=== PATIENT | female | born 1940 | race Caucasian/White ===

== ENCOUNTER 2016-06-21 09:00 | Inpatient (IN) | payer OTHER ==
[~2016-06-21] VITALS: Ht 160 cm; Wt 59.0 kg
--- NOTE | 2016-06-21 10:36 | DIAGNOSTIC IMAGING REPORT ---
PROCEDURE: XR CHEST 1 VIEW INDICATION: FEVER TECHNIQUE: Portable AP view 10:00 a.m. COMPARISON: Chest 01/18/2016 and 08/22/2013 FINDINGS: Lungs are clear. Stable mild left hemidiaphragm elevation. Cardiovascular structures are normal. Bony thorax is unremarkable. No significant interval change. IMPRESSION: 1. Negative chest.
--- NOTE | 2016-06-21 13:10 | ED CLINICAL REPORT ---
Clinical Report - Physicians/Mid Levels [facility] [address] [place] [address] 06/21/2016 9:04 [id number] Time Seen: 09:35 Jun 21 2016. Arrived- By ambulance. Historian- patient and EMS personnel. CPT: ER phys charges level 5 plus (#[id number]). EKG interpretation (#[id number]). HISTORY OF PRESENT ILLNESS Chief Complaint: WEAKNESS. Reported left sided weakness by medics but none apparent on arrival and patient not c/o of this symptoms. Last seen well yesterday at 1500. This started about 2 weeks [employer] and is still present. The patient has had weakness, (Pt indicates that she has been ill for the last 2 weeks. That she's had a cough, no apparent fever sweats or chills, no nausea vomiting diarrhea abdominal pain chest pain. Family states that she is not acting right.). At its maximum deficit described as moderate. When seen in the E.D., deficit described as mild. No dizziness, altered mental status, seizure or blackouts. Usually is alert and oriented X3 and has normal mobility. Similar symptoms previously: None. Recent medical care: The patient was seen recently at another facility in the office. Evaluation/treatment: antibiotic prescribed. Diagnosis: (UTI). REVIEW OF SYSTEMS No fever, headache, head injury, chest pain or difficulty breathing. No sputum production, sore throat or throat, abdominal pain or nausea. No diarrhea, black stools, skin rash, enlarged lymph nodes or joint pain. No vomiting, mouth sores or easy bruising. The patient has had a cough, weakness, and diabetic symptoms. All systems otherwise negative, except as recorded above. PAST HISTORY ( Esophageal Foreign Body. Arrhythmia. Dyspnea. Chest Pain. Depression. Gastroesophageal Reflux. Hyperlipidemia. Immunizations. LNMP - Last Normal Menstrual Period. Arthritis. Paroxysmal Supraventricular Tachycardia. UTI - Urinary Tract Infection. Hypoglycemia. Diabetes Mellitus. Hypertension. Hypercholesterolemia. Breast Cancer right mastectomy: Resolved. Back Surgery. cardiac Ablation for a-fib. Carpal Tunnel Surgery. Right Mastectomy. Tonsillectomy & Adenoidectomy.). Medications: Amitriptyline HCl Oral 100 mg, at bedtime. Aspirin Oral (Tablet 81 mg), at bedtime. Carbidopa-Levodopa Oral 25/100 mg, daily. Cefuroxime Axetil Oral 500 mg, 2x a day, started yesterday for UTI . Hydrocodone-Acetaminophen Oral (Tablet 10-325 mg) 1 tablet, 4x a day. Lisinopril Oral 10 mg, daily. MetFORMIN HCl Oral (Tablet 500 mg) 2 tablets, 2x a day. Omeprazole Oral 20 mg, daily. Oxybutynin Chloride Oral 5 mg, 2x a day. Simvastatin Oral 20 mg, daily. Allergies: Baclofen. SOCIAL HISTORY Former smoker. No alcohol use or drug use. ADDITIONAL NOTES The nursing notes have been reviewed. PHYSICAL EXAM Vital Signs: 06/21/2016 09:12 BP: 139/53. HR: 127. RR: 17. O2 saturation: 95%. Temp: 101.8 F. Pain level now: 0/10. Appearance: Alert. No acute distress. Head: Head atraumatic. Eyes: Pupils equal, round and reactive to light. ENT: Normal ENT inspection. Airway intact. (dry membranes). Neck: Normal inspection. Neck supple. CVS: Tachycardia. Heart sounds normal. Pulses normal. Respiratory: No respiratory distress. Mild bilateral rhonchi present posteriorly. Abdomen: Soft and nontender. Back: Normal inspection. Skin: Skin warm. Normal skin color. No rash. Extremities: Extremities exhibit normal ROM. No calf tenderness. No lower extremity edema. Neuro: Alert. Oriented X 3. Mood/affect normal. Speech normal. Cranial nerves normal (as tested). No cerebellar findings. No motor deficit. NIH Stroke Scale: score 0. Level of Consciousness: alert (0). LOC Questions: both (0). LOC Commands: both (0). Best gaze: normal (0). Visual field loss: none (0). Facial palsy: normal (0). Motor arm: no drift right arm (0) and no drift left arm (0). Motor leg: no drift right leg (0) and no drift left leg (0). Limb ataxia: none (0). Sensory loss: none (0). Aphasia: none (0). Dysarthria: normal (0). Extinction and inattention: none (0). LABS, X-RAYS, AND EKG EKG: Tachycardia. Right and left atrial enlargement. Normal JOVANNY. Normal QRS complex. Normal axis. Normal ST and T waves. Prior EKG unavailable. The study has been interpreted contemporaneously. The study has been independently viewed by me. The EKG appears to be a good tracing. Chest X-ray: Normal Chest X-Ray. Laboratory Tests: UA-Culture if indicated: (GLENNA: 06/21/2016 11:45) ( [facility] [place] 12:19) Final results Test Result Flag Units (Reference) URINE COLOR YELLOW URINE APPEARANCE CLEAR URINE GLUCOSE 3+ (NEGATIVE) URINE BILIRUBIN NEGATIVE (NEGATIVE) URINE KETONE TRACE (NEGATIVE) URINE SPECIFIC GRAVITY 1.010 (1.010-1.030) URINE PH 6.0 (5.0-8.0) URINE PROTEIN NEGATIVE (NEGATIVE) URINE UROBILINOGEN 0.2 EU/dL (0.2-1.0) URINE NITRITE NEGATIVE (NEGATIVE) URINE BLOOD NEGATIVE (NEGATIVE) URINE LEUK ESTERASE NEGATIVE (NEGATIVE) URINE RBC 0-1 rbc/hpf (0-1) URINE WBC 3-5 wbc/hpf (0-1) URINE EPITHELIAL CELLS NONE SEEN EPI/hpf (0-5) URINE BACTERIA NONE SEEN (NONE SEEN) URINE COMMENT CULT NOT INDICATED URINE CULTURES ARE SET-UP BASED ON THE FOLLOWING CRITERIA:POSITIVE NITRITEPOSITIVE LEUKOCYTE ESTERASEGREATER THAN 10 WHITE BLOOD CELLSMODERATE (2+) OR GREATER BACTERIA CBC w Diff: (GLENNA: 06/21/2016 09:55) ( [facility] [place] 10:12) IP Test Result Flag Units (Reference) WHITE BLOOD COUNT 8.4 K/uL (4.5-11.5) RED BLOOD COUNT 3.70 L M/uL (4.00-5.20) HEMOGLOBIN 10.5 L gm/dL (12.0-16.0) HEMATOCRIT 32.5 L % (36.0-46.0) MEAN CELL VOLUME 88 fL (80-100) MEAN CORPUSCULAR HGB 28 pg (26-34) MEAN CORPUSCULAR HGB CONC 32 g/dL (31-37) RED CELL DISTRIBUTION WIDTH 16.5 H % (11.6-14.8) PLATELET COUNT 231 K/uL (150-400) Lactate, Serum: (GLENNA: 06/21/2016 09:55) ( [facility] 06/21/2016 10:36) Final results Test Result Flag Units (Reference) LACTIC ACID 2.8 H mmol/L (0.4-2.0) [id number]: (GLENNA: 06/21/2016 09:55) ( MsgRcvd 06/21/2016 12:24) Final results Test Result Flag Units (Reference) PROCALCITONIN 10.5 H ng/mL (0-0.5) PCT Concentration: Interpretation : Risk/option for action PCT <=0.5 ng/mL : Systemic : Low risk forinfection(sepsis): progression to severeis not likely. : systemic infection.Local bacterial : CAUTION-PCT levelsinfection is : below 0.5 ng/mL do notpossible. : exclude an infection,because localizedinfections (withoutsystemic signs) may beassociated with suchlow levels. If PCT ismeasured very earlyafter a bacterialchallenge (usually <6hours), these valuesmay still be low. Inthis case PCT shouldbe re-assessed 6-24hours later. PCT >0.5 and : Systemic infection: Moderate risk for<= 2 ng/mL : (sepsis) is : progression to severepossible, but : systemic infection.other conditions : The patient should beare known to : closely monitoredelevate PCT. : both clinically andby re-assessing PCTwithin 6-24 hours. PCT > 2 ng/mL : Systemic infection: High risk for(sepsis) is likely: progression to severeunless other : systemic infection.causes are known. : PCT >= 10 ng/mL : Important systemic: High likelihood ofinflammatory : severe sepsis orresponse, almost : septic shock.exclusively due to:severe bacterial :sepsis or septic :shock. : CHEM 13 PANEL: (GLENNA: 06/21/2016 09:55) ( MsgRcvd 06/21/2016 11:14) Final results Test Result Flag Units (Reference) GLUCOSE 411 H mg/dL (70-110) BUN 18 mg/dL (7-18) CREATININE 0.8 mg/dL (0.6-1.3) Estimated GFR >60 mL/min Estimated GFR- >60 mL/min Note: Persistent reduction over 3 months in eGFR<60 mL/min/1.73 m2 defines CKD. Patients with eGFR values>=60 mL/min/1.73 m2 may also have CKD if evidence ofpersistent proteinuria. Additional information may be foundat www.[email or web address].org. SODIUM 139 mmol/L (136-145) POTASSIUM 4.5 mmol/L (3.5-5.1) CHLORIDE 104 mmol/L (98-107) CARBON DIOXIDE 26 mmol/L (21-32) CALCIUM 8.1 L mg/dL (8.5-10.1) TOTAL PROTEIN 5.4 L g/dL (6.4-8.2) ALBUMIN 2.5 L g/dL (3.3-5.0) BILIRUBIN, TOTAL 0.5 mg/dL (0.0-1.0) ALKALINE PHOSPHATASE 101 U/L (46-116) AST (SGOT) 45 H U/L (15-37) ALT (SGPT) 26 U/L (12-78) CPK 272 H U/L (24-260) MAGNESIUM 1.6 L mg/dL (1.8-2.4) CK-MB 6.1 H ng/mL (0.5-3.2) %CKMB 2.2 % (0.0-4.0) TROPONIN I 0.09 ng/mL (0.00-1.5) TROPONIN REFERENCE RANGE:<0.1 NEGATIVE0.1-1.5 INDETERMINANT>1.5 POSITIVE Rapid Influenza Screen: (GLENNA: 06/21/2016 10:50) ( MsgRcvd 06/21/2016 11:18) Final results SPECIMEN DESCRIPTION: SWAB Test Result Flag Units (Reference) RAPID INFLUENZA SCREEN DATE: 06/21/16 INFLUENZA A: NEGATIVE SCREEN FOR INFLUENZA A INFLUENZA B: NEGATIVE SCREEN FOR INFLUENZA B . PROGRESS AND PROCEDURES Course of Care: 09:57 06/21/16. patient has a fever and weakness. There is no evidence of unilateral weakness or CVA at this time. Patient was seen yesterday for UTI and started on Ceftin so early urosepsis or sepsis of some other etiology more likely. Pt has also had a cough and was hypoxic at 89% on RA by medics at the scene today. IV NS Blood cultures 2. Rocephin 2g IV 10:22 06/21/16. blood sugar reported by RN of 438 so 7 units regular insulin given IV. BS improved to 269. Discussed case with on-call health care provider, (Souleymane). Reviewed test results. Agreed upon treatment plan. Health care provider will see patient in hospital. Patient/family counseled. Old medical records ordered. Disposition orders written. Disposition: Admitted to the Critical Care Unit. CLINICAL IMPRESSION Acute upper respiratory infection of unclear etiology Hypoxia due to URI Weakness Fever Uncontrolled diabetes with hyperglycemia Elevated PCT and Lactate. (Electronically signed by Noe Medley MD 06/21/2016 19:01)
--- NOTE | 2016-06-21 13:11 | ED NURSING NOTES ---
Clinical Report - Nurses [facility] [address] [place] [address] 06/21/2016 9:04 [id number] TRI[facility] Triage time 0912 AM. Acuity: LEVEL 3. Chief Complaint: MUSCLE ACHES, ACTING DIFFERENTLY, WEAKNESS and CONFUSION (When called by family, pt did not "seem right"). Alert. No acute distress. MILLA COMA SCORE: Hannibal Coma Scale: 15- eyes open spontaneously (4); best verbal response- oriented x 4 (5); best motor response- obeys commands (6). --09:36 Veda Jackson R.N. 09:12 06/21/16. BP: 139/53. HR: 127. RR: 17 (regular, labored and deep). O2 saturation: 95% on non-rebreather at 15 liters/minute. Temp: 101.8 F (oral). Pain level now: 0/10. --09:36 Veda Jackson R.N. late entry - 09:12 AM. --10:19 Veda Jackson R.N. Weight: 77.5 kg stated. Height/Length: 63 inches Per Patient. BMI: 30.3. --09:22 Veda Jackson R.N. Medications Amitriptyline HCl Oral 100 mg, at bedtime. Aspirin Oral (Tablet 81 mg), at bedtime. Carbidopa-Levodopa Oral 25/100 mg, daily. Cefuroxime Axetil Oral 500 mg, 2x a day, started yesterday for UTI . Hydrocodone-Acetaminophen Oral (Tablet 10-325 mg) 1 tablet, 4x a day. Lisinopril Oral 10 mg, daily. MetFORMIN HCl Oral (Tablet 500 mg) 2 tablets, 2x a day. Omeprazole Oral 20 mg, daily. Oxybutynin Chloride Oral 5 mg, 2x a day. Simvastatin Oral 20 mg, daily. --09:20 Veda Jackson R.N. Lantus Subcutaneous. --17:13 Jackson, Veda, R.N. HumaLOG Subcutaneous. --17:14 Veda Jackson R.N. Medication/allergy information source: EMS and other (Look at last ED Visit). --09:36 Veda Jackson R.N. Allergies Baclofen. --09:20 Veda Jackson R.N. History Arrived by EMS, and unaccompanied. This started today. ( Pt lethargic, unable to get much history from her. Awaiting on family members). She has had weakness and a cough. Treatment RESTORATIVE COORDINATOR: (Cardizem 20mg by EMS). EMS treatment RESTORATIVE COORDINATOR verbally communicated. Oxygen administered by nonrebreather mask. Finger stick glucose performed (381). Pulse oximeter applied (upon arrival to house was at 89% RA). food adviser applied. Pre-hospital 12-lead EKG performed on-scene and interpreted by EMS. Medications given- diazepam (20 mg). IV fluid at keep open. BP: (reg adult cuff). HR: 150 irregular. O2 saturation: 93 % (nonrebreather mask). Upon arrival patient awake and lethargic. Oxygen being administered at 15 liters/min via nonrebreather. IV infusing x1. tugger operator and O2 sat monitor in place. PAST MEDICAL HX: Diabetes mellitus. Immunizations: up-to-date. The patient is post-menopausal. SOCIAL HX: Former smoker. No alcohol use or drug use. No infectious disease exposure. ABUSE ASSESSMENT: No report of abuse. SELF HARM ASSESSMENT: A self harm assessment was performed. The patient answered "no" to the question "Do you have thoughts of harming or killing yourself?" and "Have you recently had thoughts about harming or killing others?". FALL RISK ASSESSMENT: Fall risk assessment completed. Risk factors identified include patient medications and age greater than 65 years. Fall interventions initiated. Patient placed on stretcher. Side rails up x2. Brakes on Bed in low position. Call light in reach. Instructed not to get up without assistance. --09:36 Veda Jackson R.N. ( No Left sided weakness noted upon assessment). --10:19 Veda Jackson R.N. PROBLEMS: Esophageal Foreign Body. Arrhythmia. Dyspnea. Chest Pain. Depression. Gastroesophageal Reflux. Hyperlipidemia. Immunizations. LNMP - Last Normal Menstrual Period. Arthritis. Paroxysmal Supraventricular Tachycardia. UTI - Urinary Tract Infection. Hypoglycemia. Diabetes Mellitus. Hypertension. Hypercholesterolemia. Cancer. --09:20 Veda Jackson R.N. ADDITIONAL SURGERIES: Back Surgery. cardiac Ablation. Carpal Tunnel Surgery. Mastectomy. Tonsillectomy & Adenoidectomy. --09:21 Veda Jackson R.N. Interventions ID band on patient. --09:36 Veda Jackson R.N. 09:00 06/21/2016 Site #1 started via IV in the right forearm with an 20g angiocath; one attempt (bY EMS). --09:24 Veda Jackson R.N. PHYSICAL ASSESSMENT To room via stretcher. GENERAL / NEURO / PSYCH: Oriented X 4. Decreased awareness (opens eyes to voice, drowsy and lethargic). She has had weakness. HEENT: No facial asymmetry noted. RESPIRATORY: Decreased breath sounds in the bases bilaterally. Fine crackles in the right lung base posteriorly; crackles in the left lung base posteriorly. CVS: Cardiac rhythm: sinus tachycardia. Capillary refill less than 2 seconds. Pulses within normal limits. GI / : Abdomen soft and nontender and normal bowel sounds. SKIN: Skin intact. Skin is warm and dry. Normal skin turgor. --09:35 Veda Jackson R.N. NURSING PROGRESS NOTES Cardiac rhythm: sinus tachycardia. The initial plan of care for this patient has been created This plan of care was discussed with the patient. Oxygen administered. Monitoring of patient in place. EKG time: (0933 AM). Finger stick glucose: 433; ordered; performed by tech; result shown to the ED physician. Patient gowned. Patient hygiene performed: received partial bath. Patient is incontinent of urine. Changed patient gown, linens and diaper. Warming measures: blanket applied. Reassurance given and given. Assisted patient (with changing linens, and placed gown). Patient identifiers checked. Call light placed in reach. Side rails up x 2. Brakes of bed on. Brakes of chair on. Patient ready for evaluation- ED physician notified. --09:33 Veda Jackson R.N. 09:30 06/21/16. BP: 112/57 taken on the left arm, via an automated monitor. HR: 126. RR: 17. O2 saturation: 98%. O2 started via non-rebreather. Temp: 101.8 F (oral). Pain level now: 0/10. --09:33 Veda Jackson R.N. 10:06 06/21/2016 Site #2 started via IV in the left hand with an 20g angiocath; one attempt. Blood drawn: rainbow set and cultures x1. Labeled in the presence of the patient and sent to the lab. Saline lock flushed with 10 mL saline. --10:11 Veda Jackson R.N. 10:11 06/21/2016 Started bag #1 1000 mL IV Fluids IV NS (Saline); bolus of 500 mL over 30 minute(s) via site #1 via IV pump. Allergies verified and confirmed 5 rights. IV patency established. IV site checked: no pain, redness, or swelling. IV flushed thoroughly pre- and post-medication administration. --10:11 Veda Jackson R.N. 10:00 06/21/16. BP: 110/53. HR: 123. RR: 17. O2 saturation: 98%. O2 started via non-rebreather at 15 liters/minute. Temp: 101.8 F. Pain level now: 0/10. --10:16 Veda Jackson R.N. Cardiac rhythm: sinus tachycardia. Oxygen administered. Monitoring of patient in place. Patient ID band checked for patient name, birthdate and medical record number: patient confirmed. Blood samples drawn from the right hand with 22g butterfly by nurse per protocol ; labeled in presence of the patient and sent to lab: rainbow set: blood culture (1st set). Portable chest x-ray performed. Reassurance given. The patient is calm and resting quietly. Overall patient status is the same- she states feels the same. ( Md Medley aware of Temp 101.8, cultures sent as ordered). GENERAL / NEURO / PSYCH: Denies headache. RESPIRATORY: Denies difficulty breathing. Respiratory distress present. CVS: Denies chest pain. GI / : Denies nausea. SKIN: Skin is warm. Skin color within normal limits. Two patient identifiers checked. Call light placed in reach. Side rails up x 2. Brakes of bed on. Brakes of chair on. --10:16 Veda Jackson R.N. 10:54 06/21/2016 Insulin REG IVP 7 unit given over 20 second(s) via site #1. Allergies verified and confirmed 5 rights. IV patency established. IV site checked: no pain, redness, or swelling. IV flushed thoroughly pre- and post-medication administration. IVP given by RN. --11:04 Veda Jackson R.N. 11:00 06/21/16. BP: 144/58. HR: 121. RR: 17. O2 saturation: 100%. O2 started via non-rebreather at 15 liters/minute. Pain level now: 0/10. --11:25 Veda Jackson R.N. Cardiac rhythm: sinus tachycardia. Oxygen administered. Monitoring of patient in place. Reassurance given. Reassessment after fluids administered and medication administered. She is calm and has had no adverse reaction. Overall patient status is the same- she states feels the same. Two patient identifiers checked. Call light placed in reach. Side rails up x 2. Brakes of bed on. Brakes of chair on. --11:25 Veda Jackson R.N. Finger stick glucose: 364; performed by tech; result shown to the RN. --11:27 Veda Jackson R.N. 11:33 06/21/2016 IV Fluids IV NS via IV site #1 Rate Changed: bag #1 decreased to 250 mL/hr via IV pump. IV patency established. IV site checked: no pain, redness, or swelling. IV flushed thoroughly. Confirmed 5 Rights. --11:43 Veda Jackson R.N. 11:43 06/21/2016 Insulin REG IVP Response: no adverse reaction ([id number]). --11:43 Veda Jackson R.N. 11:40. Wind Power Project Manager provided (catheterization for urine sample.). --11:47 Candy Ramirez Cardiac rhythm: sinus tachycardia. Reassurance given. Patient ID band checked for patient name and birthdate: patient confirmed. Instructions provided to collect clean catch urine and patient verbalized understanding. Clean catch urine collected with return of yellow-colored clear urine; sample sent to lab for urinalysis. Specimen labeled in the presence of the patient. Reassessment after fluids administered and medication administered (BS repeated at 364). She is calm and resting quietly. Overall patient status is improved- she states feels the same. ( BS repeated at 364 MD aware, Temp down to 100.8, O2 brought down to NC at 3L). GENERAL / NEURO / PSYCH: Denies headache or anxiety. RESPIRATORY: Denies difficulty breathing. Respiratory distress present. CVS: Denies chest pain. GI / : Denies nausea. SKIN: Skin is warm. Skin color within normal limits. Two patient identifiers checked. Call light placed in reach. Side rails up x 2. Brakes of bed on. Brakes of chair on. --11:50 Veda Jackson R.N. 11:48 06/21/16. HR: 122. RR: 16. O2 saturation: 100%. O2 started via nasal cannula at 3 liters/minute. Temp: 100.8 F (oral). Pain level now: 0/10. --11:50 Veda Jackson R.N. 10:54 06/21/2016 Insulin REG IVP Co-signature: dosage and concentration verified. --11:54 Lester Bahena R.N. 12:42 06/21/2016 Started 2 gm of Rocephin (CefTRIAXone Sodium) IVPB in bag #1 50 mL; at 150 mL/hr over 30 minute(s) via site #1 via IV pump. Allergies verified and confirmed 5 rights. IV patency established. IV site checked: no pain, redness, or swelling. IV flushed thoroughly pre- and post-medication administration. --12:42 Veda Jackson R.N. 12:00 06/21/16. BP: 107/45 (regular adult cuff) taken on the right arm, via an automated monitor, while lying. HR: 120. RR: 23. O2 saturation: 100%. O2 started via nasal cannula at 3 liters/minute. Temp: 100.8 F (oral). Pain level now: 0/10. --12:45 Veda Jackson R.N. Cardiac rhythm: sinus tachycardia. Oxygen administered. Monitoring of patient in place. Reassurance given. The patient is calm and resting quietly and has had no adverse reaction. Overall patient status is improved- she states feels the same. Patient identifiers checked. Call light placed in reach. Side rails up x 2. Brakes of bed on. Brakes of chair on. --12:45 Veda Jackson R.N. Finger stick glucose: 269 mg/dL; ordered; performed by tech; result shown to the RN. --12:53 Rebeka Golden 13:21 06/21/16. Cardiac rhythm: sinus tachycardia. --13:21 Lester Bahena R.N. 13:20 06/21/16. BP: 98/46. HR: 114. RR: 18. O2 saturation: 99% on nasal cannula at 3 liters/minute. --13:21 Lester Bahena R.N. 13:41 06/21/2016 Rocephin IVPB Discontinued: bag #1 completed. Total amount infused: 50 mL. IV patency established. IV site checked: no pain, redness, or swelling. IV flushed thoroughly. --13:46 Veda Jackson R.N. 14:09 06/21/16. BP: 107/72 (regular adult cuff) taken on the right arm, via an automated monitor, while lying. HR: 113 (regular and tachycardic). RR: 17. O2 saturation: 100%. Temp: 101.4 F. Pain level now: 0/10. --14:31 Veda Jackson R.N. Cardiac rhythm: sinus tachycardia. Oxygen administered. Monitoring of patient in place. Reassurance given. Reassessment after oxygen administered and medication administered. She is calm and has had no adverse reaction. Overall patient status is improved- she states feels the same. Two patient identifiers checked. Call light placed in reach. Side rails up x 2. Brakes of bed on. Brakes of chair on. --14:31 Veda Jackson R.N. Oxygen administered. food adviser, pulse oximeter and NIBP monitor placed on patient; monitor alarms on. Finger stick glucose: 158; performed by nurse; result shown to the ED physician. Reassurance given. Reassessment after fluids administered. She is calm and has had no adverse reaction. ( Pt complaining of stomach ache, Dr. Medley aware, Tylenol given for temp of 101.4. Fluids infusing, bedpan provided with UO of 150 ml). RESPIRATORY: Denies difficulty breathing. CVS: Denies chest pain. GI / : Denies nausea. SKIN: Skin is warm. Skin color within normal limits. Two patient identifiers checked. Call light placed in reach. Side rails up x 2. Brakes of bed on. Brakes of chair on. Patient waiting for treatment bed / room. --14:58 Veda Jackson R.N. 16:00 06/21/16. BP: 115/50. HR: 122 (regular and tachycardic). RR: 17. O2 saturation: 97%. O2 started via nasal cannula at 3 liters/minute. Temp: 100 F (oral). Pain level now: 0/10. --16:58 Veda Jackson R.N. Oxygen administered. Monitoring of patient in place. Reassurance given. Reassessment after oxygen and fluids administered and medication administered. She has had no adverse reaction. Overall patient status is improved- she states feels better. RESPIRATORY: Denies difficulty breathing. CVS: Denies chest pain. Two patient identifiers checked. Call light placed in reach. Side rails up x 2. Brakes of bed on. Brakes of chair on. --16:58 Veda Jackson R.N. 15:00 06/21/16. BP: 109/50. HR: 112 (regular and tachycardic). RR: 15. O2 saturation: 97%. O2 started via nasal cannula at 3 liters/minute. Temp: 99 F (oral). Pain level now: 0/10. --17:01 Veda Jackson R.N. Cardiac rhythm: sinus tachycardia. Oxygen administered. Monitoring of patient in place. Assisted patient back to bed; tolerated well (to Commode x2 assistance). The patient is calm. Overall patient status is improved- she states feels better. Two patient identifiers checked. Call light placed in reach. Side rails up x 1. Brakes of bed on. Brakes of chair on. --17:01 Veda Jackson R.N. 13:25 06/21/2016 IV Fluids IV NS Discontinued: bag #2 completed upon admission. Total amount infused: 1000 mL. --18:25 Veda Jackson R.N. 14:50 06/21/2016 Tylenol (Acetaminophen) PO Tablets 650 mg given. Allergies verified and confirmed 5 rights. --17:51 Veda Jackson R.N. 15:15 06/21/2016 Tylenol PO Response: no adverse reaction symptoms have improved. --17:51 Veda Jackson R.N. DISPOSITION / DISCHARGE 18:03 06/21/2016 Site #1 reassessed; patent, infusing well and no signs of infection or infiltration. Line flushed with saline. Good blood return present. Converted to saline lock. --18:03 Veda Jackson R.N. 18:03 06/21/2016 Site #2 reassessed; patent, line flushes easily and no signs of infiltration. Line flushed with saline. Good blood return present. Converted to saline lock. Flushed with 10 mL saline. --18:03 Veda Jackson R.N. Departure time: 1806 PM. Condition at departure: improved and stable. Transported via stretcher by nurse with O2. Report was given to a nurse via a phone call. Report included patient's care and treatment. All questions were answered. Report was acknowledged and care was transferred. ( Report given to YUKI Traylor in CCU, transferred safely). FALL RISK ASSESSMENT: Fall risk assessment completed. No fall risk identified. --18:04 Veda Jackson R.N. 18:02 06/21/16. BP: 109/55 (regular adult cuff) taken on the left arm, via an automated monitor, while lying. HR: 110. RR: 18. O2 saturation: 94%. O2 started via nasal cannula at 2 liters/minute. Temp: 98.4 F (oral). Pain level now: 0/10. --18:04 Veda Jackson R.N. Locked/Released at 06/21/2016 18:25 by Veda Jackson R.N.
--- NOTE | 2016-06-21 13:11 | ED ORDER SUMMARY ---
..... Patient: ALMITA SANTANA OrderSheet [facility] VisitID: [id number] [place] [address] 76y, F Registration Date/Time: 06/21/2016 ORDER SHEET Weight: 77.5 kg (stated) Allergies: Baclofen GENERAL ORDERS: EKG - ER Stat (09:51 06/21/2016 Danny R.NMarino per protocol) (Ack 9:52 Matt) (9:52 Matt) Blood Culture (Yes) (cefuroxime) Urgent (09:54 06/21/2016 Mike BOWLES) (Ack 9:56 Matt) (10:02 YOUSIFassan R.N.) Cardiac Panel Stat (09:54 06/21/2016 Mike BOWLES) (Ack 9:56 Matt) (10:02 EHassan R.N.) UA-Culture if indicated Urgent (09:54 06/21/2016 Mike BOWLES) (Ack 9:56 Matt) (11:42 EHassan R.N.) Lactate, Serum Urgent (09:54 06/21/2016 Mike BOWLES) (Ack 9:56 Matt) (10:02 YOUSIFassan R.N.) PCT (Procalcitonin) Urgent (09:54 06/21/2016 Mike BOWLES) (Ack 9:56 Matt) (10:02 EHassan R.N.) Chest 1V Urgent (09:55 06/21/2016 Mike BOWLES) (Ack 9:56 Matt) (10:02 EHassan R.N.) Rapid Influenza Screen (Nasal Pharyngeal) (swab) Urgent (10:42 06/21/2016 Mike BOWLES) (Ack 10:56 Laura) (11:03 EHassan R.N.) Old Records (From clinic yesterday to see if have urine culture. and UA results.) (13:11 06/21/2016 Mike BOWLES) (15:08 Laura) MEDICATION ORDERS: Tylenol PO 650 mg (NOW) (14:43 06/21/2016 EHassan R.N. verbal order read back to Mike BOWLES) (17:51 Alana R.NMarino) IV FLUIDS: IV NS : initial bolus 500 mL (1000 mL/hr), then 250 mL/hr for 2h (NOW); Routine (09:54 06/21/2016 Mike BOWLES) (10:11 Alana R.N.) Insulin Reg IV 7 units (NOW) (10:22 06/21/2016 Mike BOWLES) (11:04 Alana R.N.) Rocephin IV 2 gm/50mL (NOW) (12:32 06/21/2016 Mike BOWLES) (12:42 Alana R.N.) ORDER SHEET NOTES: [Electronically signed by Veda Jackson R.N. (18:25 06/21/2016)] [Electronically signed by Noe Medley MD (19:01 06/21/2016)] [Electronically locked/signed by Veda Jackson R.N. (18:25 06/21/2016)]
--- NOTE | 2016-06-21 13:11 | ED ORDER SUMMARY ---
..... Patient: ALMITA SANTANA OrderSheet [facility] VisitID: [id number] [place] [address] 76y, F Registration Date/Time: 06/21/2016 ORDER SHEET Weight: 77.5 kg (stated) Allergies: Baclofen GENERAL ORDERS: EKG - ER Stat (09:51 06/21/2016 Danny R.NMarino per protocol) (Ack 9:52 Matt) (9:52 Matt) Blood Culture (Yes) (cefuroxime) Urgent (09:54 06/21/2016 Mike BOWLES) (Ack 9:56 Matt) (10:02 YOUSIFassan R.N.) Cardiac Panel Stat (09:54 06/21/2016 Mike BOWLES) (Ack 9:56 Matt) (10:02 EHassan R.N.) UA-Culture if indicated Urgent (09:54 06/21/2016 Mike BOWLES) (Ack 9:56 Matt) (11:42 EHassan R.N.) Lactate, Serum Urgent (09:54 06/21/2016 Mike BOWLES) (Ack 9:56 Matt) (10:02 YOUSIFassan R.N.) PCT (Procalcitonin) Urgent (09:54 06/21/2016 Mike BOWLES) (Ack 9:56 Matt) (10:02 EHassan R.N.) Chest 1V Urgent (09:55 06/21/2016 Mike BOWLES) (Ack 9:56 Matt) (10:02 EHassan R.N.) Rapid Influenza Screen (Nasal Pharyngeal) (swab) Urgent (10:42 06/21/2016 Mike BOWLES) (Ack 10:56 Laura) (11:03 EHassan R.N.) Old Records (From clinic yesterday to see if have urine culture. and UA results.) (13:11 06/21/2016 Mike BOWLES) (15:08 Laura) MEDICATION ORDERS: Tylenol PO 650 mg (NOW) (14:43 06/21/2016 EHassan R.N. verbal order read back to Mike BOWLES) (17:51 Alana R.NMarino) IV FLUIDS: IV NS : initial bolus 500 mL (1000 mL/hr), then 250 mL/hr for 2h (NOW); Routine (09:54 06/21/2016 Mike BOWLES) (10:11 Alana R.N.) Insulin Reg IV 7 units (NOW) (10:22 06/21/2016 Mike BOWLES) (11:04 Alana R.N.) Rocephin IV 2 gm/50mL (NOW) (12:32 06/21/2016 Mike BOWLES) (12:42 Alana R.N.) ORDER SHEET NOTES: [Electronically signed by Veda Jackson R.N. (18:25 06/21/2016)] [Electronically signed by Noe Medley MD (19:01 06/21/2016)] [Electronically locked/signed by Veda Jackson R.N. (18:25 06/21/2016)]
--- NOTE | 2016-06-21 14:12 | Progress Note ---
Subjective General Admission History and Physical Examination Patient Name: Sravani Marroquin Admission Date: June 21, 2016 Primary Care Provider: Natalia Hamilton M.D. Attending Physician: Alejo Comer M.D. Admitting Physician: Alejo Comer M.D. SUBJECTIVE Historian: Patient and family Reliability: Fair Chief Complaint: Weakness History of Present Illness: The patient is a 76-year-old white female with a significant past medical history of hypertension, diabetes mellitus, PSVT, degenerative joint disease, gastroesophageal reflux, hyperlipidemia, depression, who presented to [facility] emergency department on the day of admission secondary to complaints of weakness. [facility] ER evaluation was consistent with possible sepsis/viral syndrome. Secondary to the above, the patient was admitted by Alejo Comer M.D. for further evaluation and treatment. PAST MEDICAL HISTORY Illnesses: 1. Hypercholesterolemia 2. Hypertension 3. Diabetes mellitus 4. PSVT 5. Degenerative joint disease 6. Gastroesophageal reflux 7. Depression 8. Esophageal stricture Allergies: 1. Baclofen Medications: 1. Amitriptyline HCl Oral 100 mg, at bedtime. 2. Aspirin Oral (Tablet 81 mg), at bedtime. 3. Carbidopa-Levodopa Oral 25/100 mg, daily. 4. Cefuroxime Axetil Oral 500 mg, 2x a day, started yesterday for UTI . 5. Hydrocodone-Acetaminophen Oral (Tablet 10-325 mg) 1 tablet, 4x a day. 6. Lisinopril Oral 10 mg, daily. 7. Metformin Oral (Tablet 500 mg) 2 tablets, 2x a day. 8. Omeprazole Oral 20 mg, daily. 9. Oxybutynin Chloride Oral 5 mg, 2x a day. 10. Simvastatin Oral 20 mg, daily. Surgery: 1. Back surgery 2. Carpal tunnel release 3. Mastectomy 4. Tonsillectomy and adenoidectomy 5. Cardiac ablation Injuries: 1. No significant Hospitalizations: 1. For above surgery and medical problems FAMILY HISTORY Parents: 1. Father, Unknown, 2. Mother, Unknown Siblings: 1. The patient has 2 siblings apparently in good health Children: 1. The patient has 6 children with no significant medical problems Other significant family history: None SOCIAL HISTORY 1. Marital Status: 2. Advent: None 3. Education: High school and 2 years college-[employer] degree 4. Employment History: ASSISTANT PRODUCE MANAGER, retired 5. Occupational health exposures: No significant HABITS 1. Tobacco: None 2. Drugs: None 3. Alcohol: None HEALTH SUPERVISION Item/Test 1. Not reviewed IMMUNIZATIONS: 1. Pneumococcal: Unknown 2. Influenza: Unknown 3. Tetanus: Unknown REVIEW OF SYSTEMS Remarkable for those things stated in the history of present illness and past medical history. Seventeen point review of system completed with the following notable findings: Unable to obtain secondary to mental status Physical Exam General Appearance Alert, Cooperative, No acute distress HEENT Atraumatic, PERRLA, EOMI, Moist mucous membranes Lungs Scattered rhonchi, otherwise clear to auscultation Neck Supple, No JVD Cardiovascular Normal S1 and S2, tachycardic, grade 2/6 systolic murmur, no rubs or gallops Abdomen Normal bowel sounds, Soft, No tenderness, No guarding Extremities No cyanosis, No clubbing, No edema Neurological Cranial nerves intact, Strength 5/5 x4 ext's, No lateralizing signs Psych/Mental Status Mental status normal, Mood normal LAB Results Laboratory Tests 06/21 06/21 06/21 06/21 1145 0955 0955 0955 Chemistry Plasma Sodium (136 - 145 mmol/L) 139 Plasma Potassium (3.5 - 5.1 mmol/L) 4.5 Plasma Chloride (98 - 107 mmol/L) 104 CO2 (Enzymatic) (21 - 32 mmol/L) 26 BUN (7 - 18 mg/dL) 18 Creatinine (0.6 - 1.3 mg/dL) 0.8 Est GFR ( Amer) (mL/min) >60 Est GFR (Non-Af Amer) (mL/min) >60 Glucose (70 - 110 mg/dL) 411 Lactic Acid (0.4 - 2.0 mmol/L) 2.8 Plasma Calcium (8.5 - 10.1 mg/dL) 8.1 Plasma Magnesium (1.8 - 2.4 mg/dL) 1.6 Total Bilirubin (0.0 - 1.0 mg/dL) 0.5 AST (15 - 37 U/L) 45 ALT (12 - 78 U/L) 26 Alkaline Phosphatase (46 - 116 U/L) 101 Creatine Kinase (24 - 260 U/L) 272 CK-MB (CK-2) (0.5 - 3.2 ng/mL) 6.1 CK/CKMB % Calc (0.0 - 4.0 %) 2.2 Troponin (0.00 - 1.5 ng/mL) 0.09 Total Protein (6.4 - 8.2 g/dL) 5.4 Albumin (3.3 - 5.0 g/dL) 2.5 Procalcitonin (0 - 0.5 ng/mL) 10.5 Hematology WBC (4.5 - 11.5 K/uL) 8.4 RBC (4.00 - 5.20 M/uL) 3.70 Hgb (12.0 - 16.0 gm/dL) 10.5 Hct (36.0 - 46.0 %) 32.5 MCV (80 - 100 fL) 88 MCH (26 - 34 pg) 28 RDW (11.6 - 14.8 %) 16.5 Neut % (Auto) (50 - 75 %) Pending Lymph % (Auto) (25 - 40 %) Pending [place] % (Auto) (3 - 14 %) Pending Band Neutrophils % (0 - 8 %) Pending Plt Count, EDTA (150 - 400 K/uL) 231 PUBS MCHC (31 - 37 g/dL) 32 Urines Urine Color YELLOW Urine Appearance CLEAR Urine pH (5.0 - 8.0) 6.0 Ur Specific [place] (1.010 - 1.030) 1.010 Urine Protein (NEGATIVE) NEGATIVE Urine Ketones (NEGATIVE) TRACE Urine Blood (NEGATIVE) NEGATIVE Urine Nitrite (NEGATIVE) NEGATIVE Urine Bilirubin (NEGATIVE) NEGATIVE Urine Urobilinogen (0.2 - 1.0 EU/dL) 0.2 Ur Leukocyte Esterase (NEGATIVE) NEGATIVE Urine RBC (0 - 1 rbc/hpf) 0-1 Urine WBC (0 - 1 wbc/hpf) 3-5 Ur Epithelial Cells (0 - 5 EPI/hpf) NONE SEEN Urine Bacteria (NONE SEEN) NONE SEEN Urine Glucose (NEGATIVE) 3+ Urine Comment CULT NOT INDICATED Microbiology Date/Time Procedure - Status Source Growth 06/21 1050 Influenza Screen - COMP NASALPHAR 06/21 1020 Blood Culture - RECD BLOOD 06/21 0955 Blood Culture - RECD BLOOD Imaging Chest x-ray IMPRESSION: 1. Negative chest. Dictated by: KALYN MARTIN MD D: GILDA;06/21/16 1036 Assessment and Plan Problem List 1. Upper respiratory infection Plan -Patient's family gives history recent cough-mild -Temperature elevation -No infiltrates on chest x-ray -Empiric treatment with Rocephin in the emergency room -Blood cultures obtained -Elevated Procalcitonin, normal WBC with left shift -Monitor 2. Weakness Plan -Patient presents with diffuse weakness -No focal deficits -Febrile illness noted source probable upper respiratory -Monitor -IV fluid therapy 3. Rhabdomyolysis Status Acute Onset Date Unknown Plan -Patient shows mild rhabdomyolysis -IV fluid therapy -Monitor CPK -Monitor renal function 4. Hypomagnesemia Status Acute Onset Date Unknown Plan -Patient with mild hypomagnesemia -Magnesium 2 g IV now -Slow-Mag one by mouth 3 times a day -Monitor 5. Uncontrolled diabetes mellitus Plan -Patient with uncontrolled diabetes mellitus -Insulin sliding scale -Monitor -Check hemoglobin A1c in a.m. Current status: Fair, unstable Anticipated discharge date: Anticipated discharge in 2-3 days Anticipated discharge placement: Home Patient care time: Time spent in chart review, patient interview, physical exam, CPOE, and care documentation: 70 minutes Visit to patient today: 2 Complexity of care: High E&M Codes Rounding: Inpt-High/[id number]
[2016-06-21 18:15] VITALS: BP 114/53
--- NOTE | 2016-06-21 19:01 | ED MED RECONCILIATION SUMMARY ---
Patient: ALMITA SANTANA Medication Reconciliation Report [facility] VisitID: [id number] [address] [place] [address] 76y, F Registration Date/Time: 06/21/2016 Weight: 77.5 kg Height/Length: 63 in. BMI: 30.3 ALLERGIES: Baclofen The patient's Home Medications are listed below: THE FOLLOWING MEDICATIONS NEED TO BE RECONCILED: Amitriptyline HCl Oral 100 mg, at bedtime Aspirin Oral (81 mg), at bedtime Carbidopa-Levodopa Oral 25/100 mg, daily Cefuroxime Axetil Oral 500 mg, 2x a day HumaLOG Subcutaneous Hydrocodone-Acetaminophen Oral (10-325 mg) 1 tablet, 4x a day Lantus Subcutaneous Lisinopril Oral 10 mg, daily MetFORMIN HCl Oral (500 mg) 2 tablets, 2x a day Omeprazole Oral 20 mg, daily Oxybutynin Chloride Oral 5 mg, 2x a day Simvastatin Oral 20 mg, daily The source(s) of the original Home Medication information: EMS other Look at last ED Visit The following Medications were given to the patient in the Emergency Department: IV NS IV Fluids bolus 500 mL over 30 minute(s), administered: 06/21/2016 10:11:00 AM Insulin REG [IVP] IVP 7 unit, administered: 06/21/2016 10:54:00 AM Rocephin [IVPB] IVPB bolus 0, then 2 gm 150 mL/hr, administered: 06/21/2016 12:42:00 PM Tylenol [PO] PO 650 mg, administered: 06/21/2016 2:50:00 PM The following Medications were prescribed to the patient: None.
--- NOTE | 2016-06-21 19:01 | ED DISCHARGE INSTRUCTIONS ---
Patient: ALMITA SANTANA General Instructions [facility] VisitID: [id number] [address] [place] [address] 76y, F Registration Date/Time: 06/21/2016 Acute upper respiratory infection of unclear etiology Hypoxia due to URI Weakness Fever Uncontrolled diabetes with hyperglycemia Elevated PCT and Lactate. (Electronically signed by Noe Medley MD 06/21/2016 19:01)
--- NOTE | 2016-06-21 19:01 | ED MAR SUMMARY ---
..... Medication Administration Record [facility] [address] [place] [address] Patient: ALMITA SANTANA Visit ID: [id number] 76y, F Weight: 77.5 kg Height/Length: 63 in BMI: 30.3 ALLERGIES: Baclofen Start 10:11 06/21/2016 Veda Jackson R.N., Stop 13:25 06/21/2016 Veda Jackson R.N. Medication Administered: IV NS (SALINE), Dose: IV Fluids, Bolus: 500 mL over 30 minute(s), Dispensed: 1000 mL bag, Site: #1 right forearm. Medication Ordered: IV NS : initial bolus 500 mL (1000 mL/hr), then 250 mL/hr for 2h (NOW); Routine. Given 10:54 06/21/2016 Veda Jackson R.N. Medication Administered: INSULIN REG [IVP], Dose: 7 unit IVP over 20 second(s), Site: #1 right forearm. Medication Ordered: Insulin Reg IV 7 units (NOW). Start 12:42 06/21/2016 Veda Jackson R.N., Stop 13:41 06/21/2016 Veda Jackson R.N. Medication Administered: ROCEPHIN [IVPB] (CEFTRIAXONE SODIUM), Dose: 2 gm IVPB over 30 minute(s), Rate: 150 mL/hr, Dispensed: 50 mL bag, Site: #1 right forearm. Medication Ordered: Rocephin IV 2 gm/50mL (NOW). Given 14:50 06/21/2016 Veda Jackson R.N. Medication Administered: TYLENOL [PO] (ACETAMINOPHEN), Dose: 650 mg Tablets PO. Medication Ordered: Tylenol PO 650 mg (NOW).
--- NOTE | 2016-06-21 19:01 | ED MAR SUMMARY ---
..... Medication Administration Record [facility] [address] [place] [address] Patient: ALMITA SANTANA Visit ID: [id number] 76y, F Weight: 77.5 kg Height/Length: 63 in BMI: 30.3 ALLERGIES: Baclofen Start 10:11 06/21/2016 Veda Jackson R.N., Stop 13:25 06/21/2016 Veda Jackson R.N. Medication Administered: IV NS (SALINE), Dose: IV Fluids, Bolus: 500 mL over 30 minute(s), Dispensed: 1000 mL bag, Site: #1 right forearm. Medication Ordered: IV NS : initial bolus 500 mL (1000 mL/hr), then 250 mL/hr for 2h (NOW); Routine. Given 10:54 06/21/2016 Veda Jackson R.N. Medication Administered: INSULIN REG [IVP], Dose: 7 unit IVP over 20 second(s), Site: #1 right forearm. Medication Ordered: Insulin Reg IV 7 units (NOW). Start 12:42 06/21/2016 Veda Jackson R.N., Stop 13:41 06/21/2016 Veda Jackson R.N. Medication Administered: ROCEPHIN [IVPB] (CEFTRIAXONE SODIUM), Dose: 2 gm IVPB over 30 minute(s), Rate: 150 mL/hr, Dispensed: 50 mL bag, Site: #1 right forearm. Medication Ordered: Rocephin IV 2 gm/50mL (NOW). Given 14:50 06/21/2016 Veda Jackson R.N. Medication Administered: TYLENOL [PO] (ACETAMINOPHEN), Dose: 650 mg Tablets PO. Medication Ordered: Tylenol PO 650 mg (NOW).
--- NOTE | 2016-06-21 19:01 | ED MED RECONCILIATION SUMMARY ---
Patient: ALMITA SANTANA Medication Reconciliation Report [facility] VisitID: [id number] [address] [place] [address] 76y, F Registration Date/Time: 06/21/2016 Weight: 77.5 kg Height/Length: 63 in. BMI: 30.3 ALLERGIES: Baclofen The patient's Home Medications are listed below: THE FOLLOWING MEDICATIONS NEED TO BE RECONCILED: Amitriptyline HCl Oral 100 mg, at bedtime Aspirin Oral (81 mg), at bedtime Carbidopa-Levodopa Oral 25/100 mg, daily Cefuroxime Axetil Oral 500 mg, 2x a day HumaLOG Subcutaneous Hydrocodone-Acetaminophen Oral (10-325 mg) 1 tablet, 4x a day Lantus Subcutaneous Lisinopril Oral 10 mg, daily MetFORMIN HCl Oral (500 mg) 2 tablets, 2x a day Omeprazole Oral 20 mg, daily Oxybutynin Chloride Oral 5 mg, 2x a day Simvastatin Oral 20 mg, daily The source(s) of the original Home Medication information: EMS other Look at last ED Visit The following Medications were given to the patient in the Emergency Department: IV NS IV Fluids bolus 500 mL over 30 minute(s), administered: 06/21/2016 10:11:00 AM Insulin REG [IVP] IVP 7 unit, administered: 06/21/2016 10:54:00 AM Rocephin [IVPB] IVPB bolus 0, then 2 gm 150 mL/hr, administered: 06/21/2016 12:42:00 PM Tylenol [PO] PO 650 mg, administered: 06/21/2016 2:50:00 PM The following Medications were prescribed to the patient: None.
--- NOTE | 2016-06-21 19:01 | ED DISCHARGE INSTRUCTIONS ---
Patient: ALMITA SANTANA General Instructions [facility] VisitID: [id number] [address] [place] [address] 76y, F Registration Date/Time: 06/21/2016 Acute upper respiratory infection of unclear etiology Hypoxia due to URI Weakness Fever Uncontrolled diabetes with hyperglycemia Elevated PCT and Lactate. (Electronically signed by Noe Medley MD 06/21/2016 19:01)
[2016-06-21 19:15] VITALS: BP 109/48
[2016-06-21 20:13] VITALS: BP 117/55
[2016-06-21] MEDS ORDERED: CYCLOBENZAPRINE10 MG PO (21:07)
[2016-06-21] MEDS ORDERED: NORCO1 TAB PO (21:08)
[2016-06-21 21:10] VITALS: BP 101/75
[2016-06-21] MEDS ORDERED: AMITRIPTYLINE H25 MG PO (21:10)
[2016-06-21] MEDS ORDERED: METFORMIN HCL500 MG PO (21:10)
[2016-06-21] MEDS ORDERED: LANTUS SOL100 UNITS/ SC ×2 (21:12)
[2016-06-21] MEDS ORDERED: DITROPAN EQUIVAL5 MG PO (21:13)
[2016-06-21] MEDS ORDERED: SINEMET1 TA2 PO (21:13)
[2016-06-21] MEDS ORDERED: HUMALOG100 MG/ML SC (21:14)
[2016-06-21] MEDS ORDERED: LISINOPRIL10 MG PO (21:15)
[2016-06-21] MEDS ORDERED: GABAPENTIN300 MG PO (21:15)
[2016-06-21] MEDS ORDERED: SIMVASTATIN10 MG PO (21:16)
[2016-06-21] MEDS ORDERED: MECLIZINE HCL25 M1 PO (21:16)
[2016-06-21] MEDS ORDERED: VITAMIN E200 UNIT PO (21:17)
[2016-06-21] MEDS ORDERED: CALCIUM500 M2 PO (21:17)
[2016-06-21] MEDS ORDERED: MULTIPLE VITAMIN PO (21:18)
[2016-06-21] MEDS ORDERED: VITAMIN D-11000 UNIT (21:18)
[2016-06-21 22:01] VITALS: BP 122/58
[2016-06-21 23:00] VITALS: BP 135/61
[2016-06-22] VITALS (13 sets, daily range): BP systolic 127–148; BP diastolic 57–95
--- NOTE | 2016-06-22 07:56 | Progress Note ---
Subjective General Note Date: June 22, 2016 Admission Date: June 21, 2016 Hospital Day: 2 PCP: Natalia Hamilton M.D. Status: Inpatient Advanced Directive: FULL CODE Room: 305 Brief History: The patient is a 76-year-old white female with a significant past medical history of hypertension, diabetes mellitus, PSVT, degenerative joint disease, gastroesophageal reflux, hyperlipidemia, depression, who presented to [facility] emergency department on the day of admission secondary to complaints of weakness. [facility] ER evaluation was consistent with possible sepsis/viral syndrome. Secondary to the above, the patient was admitted by Alejo Comer M.D. for further evaluation and treatment. For other history present illness, past medical history, family history, social history, review of systems, and admission physical examination please see the patient's history and physical examination and ER visit note in the patient's medical record. Subjective: The patient states she is doing well today. No specific complaints. Feels fatigued but otherwise without symptoms. Denies chills, fever, GI or GI complaints. No respiratory complaints other than shortness of breath. Patient requests: No specific Medications and Allergies Medications Current Medications Sig/Renay Start time Last Medication Dose Route Stop Time Status Admin Pantoprazole Sodium 40 MG DAILY@0600 06/22 0600 AC 06/22 IV 0604 Heparin Sodium 5,000 UNITS Q8HR 06/21 (Porcine) SC 0604 Magnesium Chloride 535 MG TID 06/21 PO 0604 Acetaminophen/ See Dose Q4H PRN 06/21 2115 AC 06/22 Hydrocodone Bitart Insts (1) PO 0604 Insulin Human Lispro See Dose ACHS 06/21 2100 AC 06/22 Insts (2) SC 0742 Acetaminophen 650 MG Q4H PRN 06/21 183 AC PO Al Hydrox/Mg Hydrox/ 15 ML Q1H PRN 06/21 183 AC Simethicone PO Albuterol Sulfate 2.5 MG Q3H PRN 06/21 183 AC IN Atropine Sulfate 0.5 MG Q3MIN PRN 06/21 183 AC IV Lidocaine HCl See Dose ONCE PRN 06/21 183 AC Insts (3) IV Magnesium Hydroxide 10 ML DAILY PRN 06/21 183 AC PO Morphine Sulfate 2 MG Q3M PRN 06/21 183 AC IV Nitroglycerin 0.4 MG Q5M PRN 06/21 1829 AC SL Ondansetron HCl 4 MG Q6H PRN 06/21 1829 AC IV Sodium Chloride 1,000 ML ASDIRECTED 06/21 1829 AC 06/22 IV 0611 Dose Instructions: (1)Acetaminophen/Hydrocodone Bitart: 1 - 2 TABLETS (2)Insulin Human Lispro: MEDIUM DOSE SLIDING SCALE (3)Lidocaine HCl: 1.5 MG/KG Allergies Coded Allergies: Meperidine and Related (10/09/97) Physical Exam Vital Signs / I&Os Vital Signs Date Time Temp Pulse Resp B/P Pulse O2 O2 Flow FiO2 Ox Delivery Rate 06/22 07 98.2 103 19 138/64 95 Nasal 3.0 Cannula 06/22 0600 104 18 135/95 96 Nasal 3.0 Cannula 06/22 0519 104 18 137/60 97 06/22 0400 107 20 138/59 95 06/22 0311 109 16 140/66 98 06/22 0208 98.2 113 22 148/67 97 Nasal 3.0 Cannula 06/22 0112 111 17 128/58 97 06/22 0000 108 15 137/60 96 06/21 2342 98.4 06/21 2300 109 14 135/61 97 Nasal 3.0 Cannula 06/21 2201 111 20 122/58 99 Nasal 3.0 Cannula 06/218 3.0 06/210 113 19 101/75 100 Nasal 3.0 Cannula 06/21 2012 111 24 117/55 100 Nasal 3.0 Cannula 06/21 2011 3.0 06/21 1915 106 16 109/48 100 Nasal 3.0 Cannula 06/21 181 99.1 111 17 114/53 97 Nasal 3.0 Cannula I&O 06/22 0000 06/21 1600 06/21 0800 Intake Total 750 Output Total 900 Balance -150 General Appearance Alert, Oriented X3, Cooperative, No acute distress Lungs minimal basilar crackles otherwise clear to auscultation Cardiovascular Regular rate and rhythm, Normal S1 and S2, grade 2/6 systolic murmur unchanged, mild tachycardia Abdomen Normal bowel sounds, Soft, No tenderness, No guarding Extremities No cyanosis, No clubbing, No edema Neurological Cranial nerves intact, No lateralizing signs Psych/Mental Status Mental status normal, Mood normal, family states middle status at baseline LAB Results Laboratory Tests 01/24 01/24 0106/21 Chemistry Plasma Sodium (136 - 145 mmol/L) 139 Plasma Potassium (3.5 - 5.1 mmol/L) 4.4 Plasma Chloride (98 - 107 mmol/L) 106 CO2 (Enzymatic) (21 - 32 mmol/L) 25 BUN (7 - 18 mg/dL) 15 Creatinine (0.6 - 1.3 mg/dL) 0.7 Est GFR ( Amer) (mL/min) >60 Est GFR (Non-Af Amer) (mL/min) >60 Glucose (70 - 110 mg/dL) 275 Hemoglobin A1c % (4.5 - 6.2 %) 8.6 Plasma Calcium (8.5 - 10.1 mg/dL) 7.7 Plasma Magnesium (1.8 - 2.4 mg/dL) 2.1 Total Bilirubin (0.0 - 1.0 mg/dL) 0.4 AST (15 - 37 U/L) 29 ALT (12 - 78 U/L) 30 Alkaline Phosphatase (46 - 116 U/L) 86 Creatine Kinase (24 - 260 U/L) 240 Troponin (0.00 - 1.5 ng/mL) 0.10 Total Protein (6.4 - 8.2 g/dL) 5.0 Albumin (3.3 - 5.0 g/dL) 2.1 Procalcitonin (0 - 0.5 ng/mL) 64.9 Hematology WBC (4.5 - 11.5 K/uL) 15.7 RBC (4.00 - 5.20 M/uL) 3.41 Hgb (12.0 - 16.0 gm/dL) 9.7 Hct (36.0 - 46.0 %) 30.1 MCV (80 - 100 fL) 88 MCH (26 - 34 pg) 28 RDW (11.6 - 14.8 %) 16.5 Neut % (Auto) (50 - 75 %) 57 Lymph % (Auto) (25 - 40 %) 8 Christian % (Auto) (3 - 14 %) 2 Eos % (Auto) (0 - 4 %) 0 Baso % (Auto) (0 - 2 %) 0 Band Neutrophils % (0 - 8 %) 33 Metamyelocytes % (0 - 1 %) 0 Myelocytes (0 - 1 %) 0 Other Cell Type RARE GIANT PLATELET Plt Count, EDTA (150 - 400 K/uL) 195 Anisocytosis (manual) 1+ PUBS MCHC (31 - 37 g/dL) 32 06/21 1145 0955 Chemistry Lactic Acid (0.4 - 2.0 mmol/L) 1.7 Creatine Kinase (24 - 260 U/L) 265 CK-MB (CK-2) (0.5 - 3.2 ng/mL) 4.0 CK/CKMB % Calc (0.0 - 4.0 %) 1.5 Troponin (0.00 - 1.5 ng/mL) 0.18 Procalcitonin (0 - 0.5 ng/mL) 10.5 Coagulation INR (0.8 - 1.2) 1.1 APTT (24 - 34 SECONDS) 32 Urines Urine Color YELLOW Urine Appearance CLEAR Urine pH (5.0 - 8.0) 6.0 Ur Specific [place] (1.010 - 1.030) 1.010 Urine Protein (NEGATIVE) NEGATIVE Urine Ketones (NEGATIVE) TRACE Urine Blood (NEGATIVE) NEGATIVE Urine Nitrite (NEGATIVE) NEGATIVE Urine Bilirubin (NEGATIVE) NEGATIVE Urine Urobilinogen (0.2 - 1.0 EU/dL) 0.2 Ur Leukocyte Esterase (NEGATIVE) NEGATIVE Urine RBC (0 - 1 rbc/hpf) 0-1 Urine WBC (0 - 1 wbc/hpf) 3-5 Ur Epithelial Cells (0 - 5 EPI/hpf) NONE SEEN Urine Bacteria (NONE SEEN) NONE SEEN Urine Glucose (NEGATIVE) 3+ Urine Comment CULT NOT INDICATED 06/21 06/21 06/21 0955 0955 0955 Chemistry Plasma Sodium (136 - 145 mmol/L) 139 Plasma Potassium (3.5 - 5.1 mmol/L) 4.5 Plasma Chloride (98 - 107 mmol/L) 104 CO2 (Enzymatic) (21 - 32 mmol/L) 26 BUN (7 - 18 mg/dL) 18 Creatinine (0.6 - 1.3 mg/dL) 0.8 Est GFR ( Amer) (mL/min) >60 Est GFR (Non-Af Amer) (mL/min) >60 Glucose (70 - 110 mg/dL) 411 Lactic Acid (0.4 - 2.0 mmol/L) 2.8 Plasma Calcium (8.5 - 10.1 mg/dL) 8.1 Plasma Magnesium (1.8 - 2.4 mg/dL) 1.6 Total Bilirubin (0.0 - 1.0 mg/dL) 0.5 AST (15 - 37 U/L) 45 ALT (12 - 78 U/L) 26 Alkaline Phosphatase (46 - 116 U/L) 101 Creatine Kinase (24 - 260 U/L) 272 CK-MB (CK-2) (0.5 - 3.2 ng/mL) 6.1 CK/CKMB % Calc (0.0 - 4.0 %) 2.2 Troponin (0.00 - 1.5 ng/mL) 0.09 B-Natriuretic Peptide (5 - 100 pg/ml) 20.4 Total Protein (6.4 - 8.2 g/dL) 5.4 Albumin (3.3 - 5.0 g/dL) 2.5 Hematology WBC (4.5 - 11.5 K/uL) 8.4 RBC (4.00 - 5.20 M/uL) 3.70 Hgb (12.0 - 16.0 gm/dL) 10.5 Hct (36.0 - 46.0 %) 32.5 MCV (80 - 100 fL) 88 MCH (26 - 34 pg) 28 RDW (11.6 - 14.8 %) 16.5 Neut % (Auto) (50 - 75 %) 83 Lymph % (Auto) (25 - 40 %) 2 Christian % (Auto) (3 - 14 %) 4 Eos % (Auto) (0 - 4 %) 0 Baso % (Auto) (0 - 2 %) 0 Band Neutrophils % (0 - 8 %) 10 Metamyelocytes % (0 - 1 %) 1 Myelocytes (0 - 1 %) 0 Other Cell Type 0 Plt Count, EDTA (150 - 400 K/uL) 231 Anisocytosis (manual) 1+ PUBS MCHC (31 - 37 g/dL) 32 Microbiology Date/Time Procedure - Status Source Growth 06/22 0001 MRSA Screen - RECD NASAL 06/21 1050 Influenza Screen - COMP NASALPHAR 06/21 1020 Blood Culture - RECD BLOOD 06/21 0955 Blood Culture - RECD BLOOD Imaging Chest X-Ray IMPRESSION: 1. Findings suggestive of fluid overload/CHF 2. Results discussed with Dr. Comer Dictated by: SAEID ROSARIO MD D: JAIME;06/22/16 0846 Echocardiogram IMPRESSION: Poor quality study. Normal left ventricular ejection fraction. Grade 1 diastolic dysfunction. Mild concentric left ventricular hypertrophy. Mildly dilated right ventricle with normal function. Aortic valve with sclerosis, evidence of turbulent flow through valve, but inadequate Doppler interrogation for evaluation of aortic stenosis. Moderate pulmonary hypertension. Dictated by: TYLER HANLEY JR, MD D: MIRNA;06/22/16 7246 Assessment and Plan Problem List 1. Upper respiratory infection Plan -Patient with minimal pulmonary symptoms -No significant cough today. -Shortness of breath with exertion -Basilar rales -Procalcitonin remains significantly elevated but improved -WBC elevated, CRP, ESR elevated -Continue empiric treatment with Rocephin 2 g IV daily await blood cultures 2. Uncontrolled diabetes mellitus Plan -Blood sugar remains elevated -Increase insulin sliding scale to high-dose -Monitor -Adjustments in therapy based on blood glucose measurements 3. Rhabdomyolysis Status Acute Onset Date Unknown Plan -Resolved -CPK within normal limits 4. Hypomagnesemia Status Acute Onset Date Unknown Plan -Patient with findings of hypomagnesemia on admission -Resolved at this time -Magnesium level 2.1 today 5. Sepsis Status Acute Onset Date 06/21/16 Plan -Patient with findings of tachycardia/fever on admission -Elevated CRP, ESR, leukocytosis with left shift, and elevated Procalcitonin. -Urinalysis unremarkable -Chest x-ray with borderline changes no clear pneumonia -No other focus of infection found at this time -Empiric treatment Rocephin 2 g IV daily -Await blood cultures. Consider CT chest and abdomen in a.m. 6. Anemia Status Acute Plan -Mild anemia -H&H: 9.7/30.1 -Check B12, folate, iron studies in a.m. -Monitor Current status: Fair, unstable Anticipated discharge date: Anticipated discharge in 2-3 days Anticipated discharge placement: Home Patient care time: Time spent in chart review, patient interview, physical exam, CPOE, and care documentation: 35 minutes Visit to patient today: 3 Complexity of care: High E&M Codes Rounding: Inpt-High/[id number]
--- NOTE | 2016-06-22 08:47 | DIAGNOSTIC IMAGING REPORT ---
PROCEDURE: XR CHEST 1 VIEW INDICATION: rule out pneumonia TECHNIQUE: Portable AP view 08:02 a.m. COMPARISON: Chest x-ray 06/21/2016 FINDINGS: New pulmonary vascular congestion, interstitial and perihilar pulmonary edema with small bilateral pleural effusions. Heart and mediastinum are normal. Thorax is normal. IMPRESSION: 1. Findings suggestive of fluid overload/CHF 2. Results discussed with Dr. Comer
--- NOTE | 2016-06-22 17:33 | DIAGNOSTIC IMAGING REPORT ---
PROCEDURE: US ECHOCARDIOGRAM INDICATION: Congestive heart failure TECHNIQUE: This is a poor quality study. Endocardial definition is poor. Aortic valve not well visualized. COMPARISON: None FINDINGS: The left ventricle is normal in size. There is mild concentric left ventricular hypertrophy. Left ventricular ejection fraction is normal. Ejection fraction visually estimated at 60-65%. There is grade 1 diastolic dysfunction. Wall motion is grossly normal. Right ventricle is mildly dilated with normal function. Right atrium mildly dilated. Left atrium mildly dilated. Aortic valve to the aortic valve structures not well visualized. There is mild sclerosis present. There appears to be turbulent flow through the valve in the parasternal long axis view. Doppler interrogation of the valve was inadequate for evaluation of aortic stenosis. Mitral valve has mild annular calcification. There is mild insufficiency. Tricuspid valve structurally normal with mild insufficiency. Pulmonary artery systolic pressure is estimated at 48-53 mmHg. Pulmonic valve not well visualized. Pericardium no pericardial effusion. There is a small right pleural effusion. Ascending aorta is normal in size. IMPRESSION: Poor quality study. Normal left ventricular ejection fraction. Grade 1 diastolic dysfunction. Mild concentric left ventricular hypertrophy. Mildly dilated right ventricle with normal function. Aortic valve with sclerosis, evidence of turbulent flow through valve, but inadequate Doppler interrogation for evaluation of aortic stenosis. Moderate pulmonary hypertension.
[2016-06-23 02:40] VITALS: BP 155/71
[2016-06-23 06:55] VITALS: BP 140/64
--- NOTE | 2016-06-23 08:45 | Progress Note ---
Subjective General Note Date: June 23, 2016 Admission Date: June 21, 2016 Hospital Day: 3 PCP: Natalia Hamilton M.D. Status: Inpatient Advanced Directive: FULL CODE Room: 305 Brief History: The patient is a 76-year-old white female with a significant past medical history of hypertension, diabetes mellitus, PSVT, degenerative joint disease, gastroesophageal reflux, hyperlipidemia, depression, who presented to [facility] emergency department on the day of admission secondary to complaints of weakness. [facility] ER evaluation was consistent with possible sepsis/viral syndrome. Secondary to the above, the patient was admitted by Alejo Comer M.D. for further evaluation and treatment. For other history present illness, past medical history, family history, social history, review of systems, and admission physical examination please see the patient's history and physical examination and ER visit note in the patient's medical record. Subjective: The patient states she is doing well today. No specific complaints. Feels fatigued but otherwise without symptoms. Denies chills, fever, GI or GI complaints. No respiratory complaints other than shortness of breath with exertion. Patient requests: No specific. Medications and Allergies Medications Current Medications Sig/Renay Start time Last Medication Dose Route Stop Time Status Admin Insulin Glargine 20 UNITS QHS 06/23 2100 AC SC Oxybutynin Chloride 5 MG BID 06/23 2100 AC PO Gabapentin 600 MG TID 06/23 1630 AC 06/23 PO 1647 Insulin Glargine 20 UNITS QAM 06/23 1544 AC 06/23 SC 1647 Metoprolol Tartrate 12.5 MG Q8HR 06/23 1030 AC 06/23 PO 1431 Amitriptyline HCl 100 MG QHS 06/22 2100 AC 06/22 PO 2115 Ceftriaxone Sodium/ 50 ML DAILY 06/22 1830 AC 06/23 Dextrose IV 0833 Insulin Human Lispro See Dose ACHS 06/22 1630 AC 06/23 Insts (1) SC 1647 Pantoprazole Sodium 40 MG DAILY@0600 06/22 0600 AC 06/23 IV 0604 Heparin Sodium 5,000 UNITS Q8HR 06/21 2200 AC 06/23 (Porcine) SC 1430 Acetaminophen/ See Dose Q4H PRN 06/21 2115 AC 06/23 Hydrocodone Bitart Insts (2) PO 1431 Acetaminophen 650 MG Q4H PRN 06/21 1830 AC PO Al Hydrox/Mg Hydrox/ 15 ML Q1H PRN 06/21 1829 AC Simethicone PO Albuterol Sulfate 2.5 MG Q3H PRN 06/21 1829 AC IN Atropine Sulfate 0.5 MG Q3MIN PRN 06/21 1829 AC IV Lidocaine HCl See Dose ONCE PRN 06/21 1829 AC Insts (3) IV Magnesium Hydroxide 10 ML DAILY PRN 06/21 1829 AC PO Morphine Sulfate 2 MG Q3M PRN 06/21 1829 AC IV Nitroglycerin 0.4 MG Q5M PRN 06/21 1829 AC SL Ondansetron HCl 4 MG Q6H PRN 06/21 1829 AC 06/23 IV 0832 Dose Instructions: (1)Insulin Human Lispro: HIGH DOSE: ACCUCHECK AND SLIDING SCALE >>To change sliding scale DISCONTINUE this order and enter a NEW order. Thanks< (2)Acetaminophen/Hydrocodone Bitart: 1 - 2 TABLETS (3)Lidocaine HCl: 1.5 MG/KG Allergies Coded Allergies: Meperidine and Related (10/09/97) Physical Exam Vital Signs / I&Os Vital Signs Date Time Temp Pulse Resp B/P Pulse O2 O2 Flow FiO2 Ox Delivery Rate 06/23 0655 98.6 114 33 140/64 96 Room Air 06/23 0240 99.0 124 23 155/71 96 Room Air 06/22 2238 99.0 119 17 127/59 96 Room Air 06/22 1842 99.0 108 22 132/62 94 06/22 1441 98.8 106 19 131/57 95 06/22 1151 97.9 06/22 1136 104 27 141/63 96 Room Air 06/22 0949 3.0 06/22 0909 Nasal 3.0 Cannula I&O 06/23 0000 06/22 1600 06/22 0800 Intake Total 1470 1429 Output Total 879 1445 800 Balance -879 25 629 General Appearance Alert, Oriented X3, Cooperative, No acute distress Lungs Normal air movement, minimal basilar crackles Cardiovascular Regular rate and rhythm, Normal S1 and S2, murmur unchanged Abdomen Normal bowel sounds, Soft, No tenderness Extremities No cyanosis, No clubbing, No edema Neurological Cranial nerves intact, No lateralizing signs Psych/Mental Status Mental status normal, Mood normal LAB Results Laboratory Tests 06/23 06/22 06/22 06/22 06/22 0527 1305 1305 1305 1030 Chemistry Plasma Sodium (136 - 145 mmol/L) 135 Plasma Potassium (3.5 - 5.1 mmol/L) 3.9 Plasma Chloride (98 - 107 mmol/L) 101 CO2 (Enzymatic) (21 - 32 mmol/L) 16 BUN (7 - 18 mg/dL) 10 Creatinine (0.6 - 1.3 mg/dL) 0.6 Est GFR ( Amer) (mL/min) >60 Est GFR (Non-Af Amer) (mL/min) >60 Glucose (70 - 110 mg/dL) 315 Plasma Calcium (8.5 - 10.1 mg/dL) 7.9 Total Bilirubin (0.0 - 1.0 mg/dL) 0.5 AST (15 - 37 U/L) 20 ALT (12 - 78 U/L) 27 Alkaline Phosphatase (46 - 116 U/L) 107 Creatine Kinase (24 - 260 U/L) 205 Troponin (0.00 - 1.5 ng/mL) 0.05 C-Reactive Protein (0.0 - 0.9 mg/dL) 28.4 Total Protein (6.4 - 8.2 g/dL) 5.5 Albumin (3.3 - 5.0 g/dL) 2.1 Amylase (25 - 115 U/L) 23 Lipase (73 - 393 U/L) 47 Procalcitonin (0 - 0.5 ng/mL) 43.1 Hematology WBC (4.5 - 11.5 K/uL) 15.2 RBC (4.00 - 5.20 M/uL) 3.58 Hgb (12.0 - 16.0 gm/dL) 10.2 Hct (36.0 - 46.0 %) 31.6 MCV (80 - 100 fL) 88 MCH (26 - 34 pg) 29 RDW (11.6 - 14.8 %) 16.3 Neut % (Auto) (50 - 75 %) 93 Lymph % (Auto) (25 - 40 %) 1 [place] % (Auto) (3 - 14 %) 1 Eos % (Auto) (0 - 4 %) 0 Baso % (Auto) (0 - 2 %) 0 Band Neutrophils % (0 - 8 %) 5 Metamyelocytes % (0 - 1 %) 0 Myelocytes (0 - 1 %) 0 Other Cell Type 0 Plt Count, EDTA (150 - 400 K/uL) 216 Anisocytosis (manual) 1+ PUBS MCHC (31 - 37 g/dL) 32 ESR Westergren (0 - 30 mm/hr) 48 Assessment and Plan Problem List 1. Upper respiratory infection Plan -Symptoms improved -No cough, nasal congestion or rhinorrhea -Monitor 2. Fever Plan -Resolved, afebrile 48 hours -Monitor 3. Weakness Plan -Diffuse, improved today -Patient ambulating -Status stable for discharge 4. Uncontrolled diabetes mellitus Plan -Improved -Patient placed back on Lantus and lispro insulin -Monitor 5. Rhabdomyolysis Status Acute Onset Date Unknown Plan -Resolved 6. Hypomagnesemia Status Acute Onset Date Unknown Plan -Patient intolerant of oral magnesium -Recheck in a.m. 7. Anemia Status Acute Plan -Mild -Stable -H&H: 10.2.6 -Check B12, folate, iron studies in a.m. -Monitor 8. Sepsis Status Acute Onset Date 06/21/16 Plan -Patient with elevation of Procalcitonin, fever, left shift on CBC on admission. -Symptoms improved -Blood cultures unremarkable -Chest x-ray, UA unremarkable -Empiric treatment with Rocephin, DC in a.m. if stable -Repeat check CBC, CRP, Procalcitonin a.m. Current status: Fair, improved Anticipated discharge date: Anticipated discharge in 1-2 days Anticipated discharge placement: Home Patient care time: Time spent in chart review, patient interview, physical exam, CPOE, and care documentation: 35 minutes Visit to patient today: 2 Complexity of care: High E&M Codes Rounding: Inpt-[id number]
[2016-06-23 14:24] VITALS: BP 122/68
[2016-06-23 21:13] VITALS: BP 144/69
[2016-06-24 02:17] VITALS: BP 136/61
[2016-06-24 06:42] VITALS: BP 150/81
[2016-06-24 11:45] VITALS: BP 144/66
[2016-06-24 14:48] VITALS: BP 170/83
--- NOTE | 2016-06-24 15:08 | Provider's Discharge Care Plan ---
Problem, Goal, Plan Problem List 1. Upper respiratory infection 2. Rhabdomyolysis 3. Weakness 4. Fever
--- NOTE | 2016-06-24 15:08 | Provider's Discharge Care Plan ---
Problem, Goal, Plan Problem List 1. Upper respiratory infection 2. Rhabdomyolysis 3. Weakness 4. Fever
[2016-06-24] MEDS ORDERED: ZITHROMAX Z-PAK1 TAB PO (15:10)
--- NOTE | 2016-06-24 15:25 | Discharge Summary ---
Discharge Summary Report Admit Date 06/21/16 Discharge Date 06/24/16 Admission Diagnosis fever upper respiratory infection weakness Discharge Diagnosis pneumonia Brief History Patient was admitted after a few days of fever,weakness, and cough. Patient was brought in and evaluated for pneumonia. Patient was treated with antibiotics and had good resolution, Hospital Course Patient was treated with antibiotics and had aggressive iv fluid therapy. Pt responded very well and had no lingering effects. Patients blood work was slow to recognize that the patient had an infection however her white count and neutrophil count has been decreasing quikly. Patient is at her baseline, has not had any recent fevers, is able to ambulate. General Appearance Alert, Oriented X3, No acute distress HEENT PERRLA Lungs Clear to auscultation, Normal air movement Cardiovascular Normal S1, Normal S2 Abdomen Soft, No hepatospenomegaly, No masses Skin No Breakdown, No Significant Lesions Neurological Normal speech, Strength at 5/5 X4 ext, Normal tone, Sensation intact, Cranial nerves 3-12 NL, Reflexes 2+ Discharge Instructions/Meds Take medications as prescribed Follow up with your pmd avoid strenuous activity
== END 2016-06-24 16:30 | disposition home or self-care (01) | DRG 871 ==
LOC: ED SRH 09:00 → TRANS SRH 13:37 → CC SRH 14:01
PROVIDERS: ADMIT Emergency Medicine
DX: A41.9 Sepsis, unspecified organism (principal); J18.9 Pneumonia, unspecified organism; M62.82 Rhabdomyolysis; R09.02 Hypoxemia; E11.65 Type 2 diabetes mellitus with hyperglycemia; I10 Essential (primary) hypertension; E83.42 Hypomagnesemia
CPT/HCPCS: 81460; 83741; 83742; 83921; 85241; 90004; 90065; 90074; 90098; 90100; 90154; 90159; 90616; 90617; 91286; 91295; 91320; 91400; 91585; 91643; 92031; 92132; 92235; 92530; 92610; 92720; 93004; 93140; 94001; 94060; 94139; 94140; 94141; 95059; 95061; 95150